=== PATIENT | male | born 1990 | race Caucasian/White ===

== ENCOUNTER 2020-08-15 06:42 | Emergency (ER) | payer SELFPAY ==
[~2020-08-15] VITALS: Ht 180.3 cm; Wt 62.6 kg
[2020-08-15 06:55] VITALS: BP 143/81; Ht 180.3 cm; Wt 62.6 kg
== END 2020-08-15 08:15 | disposition home or self-care (01) ==
LOC: ED 06:42
DX: S46.912A Strain of unspecified muscle, fascia and tendon at shoulder and upper arm level, left arm, initial encounter (principal); X58.XXXA Exposure to other specified factors, initial encounter; Y93.89 Activity, other specified; Y92.89 Other specified places as the place of occurrence of the external cause; Y99.8 Other external cause status
CPT/HCPCS: J1885